=== PATIENT | male | born 1965 | race Caucasian/White ===

== ENCOUNTER 2016-06-30 04:01 | Emergency (ER) | payer OTHER | END 2016-06-30 05:39 | disposition home or self-care (01) | LOC: ER 04:01 | DX: J06.9 Acute upper respiratory infection, unspecified (principal); R50.9 Fever, unspecified; J02.9 Acute pharyngitis, unspecified; M79.1 Myalgia; F17.210 Nicotine dependence, cigarettes, uncomplicated; Z88.0 Allergy status to penicillin | CPT/HCPCS: 87400; 99283 ==